=== PATIENT | female | born 2000 | race Caucasian/White ===

== ENCOUNTER 2022-09-23 11:03 | Emergency (ER) | payer MEDICAID, SELFPAY ==
[2022-09-23 11:12] VITALS: BP 123/82; PULSE 73; RESP 18; O2SAT 99; BMI 32.0
--- NOTE | 2022-09-23 11:27 | CRLHL7_ITS ---
For Patients: As a result of the Cures Act, medical imaging exams and procedure reports are released immediately into your electronic medical record. You may view this report before your referring provider. If you have questions, please contact your health care provider. INDICATION: Medial left wrist bump. TECHNIQUE: Three views of the left wrist. COMPARISON: None. FINDINGS: No soft tissue mass, fracture, erosive change, joint space narrowing or abnormal soft tissue calcification. CONCLUSION: Negative left wrist. Dictated by Daryl Pierre MD @ 09/23/2022 12:03:48 PM (Electronically Signed)
--- NOTE | 2022-09-23 11:31 | ED_ITS ---
HPI - Extremity Injury (Upper) General Date Seen: 09/23/22 Chief Complaint: Extremity Pain/Injury, Upper Stated Complaint: Lump on Lt wrist and going numb Time Seen by Provider: 09/23/22 11:04 Source: patient and family Mode of arrival: ambulatory Limitations: no limitations History of Present Illness HPI narrative: Patient is a 21-year-old female who is hesna-bods-bsxhbaiw, presents here with a bump on her left wrist, it is on the median side, she noticed it today, and notices little bit of tingling that comes up to her thumb 1st finger. She notices it most, when she dorsiflexes her wrist, she has noted no trauma, does not denies any injury. She is here with her mother because of this concern. Related Data Home Medications Medication Instructions Recorded Confirmed sertraline 100 mg tablet mg 09/23/22 Allergies Allergy/AdvReac Type Severity Reaction Status Date / Time amoxicillin Allergy Verified 09/23/22 11:11 Review of Systems Status of ROS: Reports: 6 or more systems reviewed and unremarkable except as noted in History and below PFSH PFSH Social History Smoking Status: Never smoker Do you use any of these nicotine containing products: None Second hand tobacco smoke exposure: No How often do you have a drink containing alcohol: never How often do you have six or more drinks on one occasion: Never AUDIT-C Alcohol total score: 0 Non-prescribed substance use: denies use service: No Exam Narrative: Exam Narrative: On examination she is in no apparent distress, there feel is a bit of a fluid- filled bump on the left wrist, overlying were extensor pollicis longus and slightly medial to this. It seemingly improves with the traction on her wrist, I suspected ganglion cyst. First finger thumb opposition, sensation is no globally normal over her entire hand. There is no thenar wasting noted. Cap refill is normal. And her wrist has full range of motion also. Const: Vital Signs, click to edit/add: Vital Signs - 24 hr 09/23/22 11:12 Pulse Rate [Pulse Oximeter] 73 Respiratory Rate 18 Blood Pressure [Ri ght Upper Arm] 123/82 Pulse Oximetry 99 Oxygen Delivery Me thod Room Air Course Course Hospital Course: I reviewed the x-ray, there is a little prominence over the scaphoid, and possibly little fluid but no firm fracture. Or other abnormality, I think a wrist splint, and follow-up with orthopedics is important, I did alleviate her anxiety over this. Vital Signs Vital signs: Initial Vital Signs Temperature Source Temporal Artery Scan 09/23/22 11:12 Pulse Rate 73 09/23/22 11:12 Pulse Rhythm 09/23/22 11:12 Respiratory Rate 18 09/23/22 11:12 Blood Pressure 123/82 09/23/22 11:12 Blood Pressure Mean 95 09/23/22 11:12 Blood Pressure Position Supine 09/23/22 11:12 Pulse Oximetry 99 09/23/22 11:12 Oxygen Delivery Method 09/23/22 11:12 Vital Signs Pulse Rate 73 09/23/22 11:12 Respiratory Rate 18 09/23/22 11:12 Blood Pressure 123/82 09/23/22 11:12 Pulse Oximetry 99 09/23/22 11:12 Oxygen Delivery Method 09/23/22 11:12 Pulse Rate 73 09/23/22 11:12 Respiratory Rate 18 09/23/22 11:12 Blood Pressure 123/82 09/23/22 11:12 Pulse Oximetry 99 09/23/22 11:12 Oxygen Delivery Method 09/23/22 11:12 MDM - Extremity Injury (Upper) MDM Narrative Medical decision making narrative: We will get a x-ray, rule out a bony abnormality, but I explained to her I think that this is a ganglion cyst a wrist splint and then follow up with Orthopedics would be suggested. Medical Records Attestation: I reviewed the patient's medical records. Lab Data Attestation: I reviewed the patient's lab results. Imaging Data wrist: Attestation: I have reviewed the pertinent imaging results. My impression: No evidence of fracture, slight prominence of the medial margin of navicular, and might be some overlying fluid. Possibly consistent with ganglion cyst or bursitis. Discharge Plan Discharge Clinical Impression: Ganglion of left wrist Patient Disposition: Home w/ Parent or Adult Condition: Stable Instructions: Ganglion Cysts (ED), Ganglion Cyst Removal (DC) Additional Instructions: Wear your splint, follow up with Orthopedics, he can do this as soon is next week, but there is really no reynolds. Sometimes they can do a cortisone shot also help this. Prescriptions: No Action sertraline 100 mg tablet Label Comments: TAKE ONE TABLET BY MOUTH ONE TIME DAILY Follow Up/Referrals: Panchito Santo DO [Primary Care Provider] - Luciano Sow MD [Staff Physician] - Minh Simeon MD [Staff Physician] - Stand Alone Forms: Your Image by [employer] Info Instructions
== END 2022-09-23 12:00 | disposition home or self-care (01) ==
PROVIDERS: Emergency Provider Family Medicine; PCP Pediatrics
DX: M67.432 Ganglion, left wrist (principal)
CPT/HCPCS: 29125; 73110; 99283

== ENCOUNTER 2024-12-03 00:44 | Emergency (ER) | payer MEDICAID, SELFPAY ==
--- NOTE | 2024-12-03 00:49 | CRLHL7_ITS ---
For Patients: As a result of the Cures Act, medical imaging exams and procedure reports are released immediately into your electronic medical record. You may view this report before your referring provider. If you have questions, please contact your health care provider. INDICATION: Stubbed on door frame TECHNIQUE: Toe radiograph 4 views right 5th COMPARISON: 11/01/2016 FINDINGS: Bone: No acute fractures or aggressive bone lesions are identified. The toe is completely obscured on the lateral view due to overlapping toe positioning. Joint: The metatarsophalangeal and interphalangeal joints are normal in appearance. Soft tissue: Unremarkable. No radiopaque foreign bodies are seen. IMPRESSION: 1. No acute osseous injuries or abnormalities are noted. Dictated by: Mukesh Landers MD @ 12/03/2024 01:13:11 (Electronically Signed)
[2024-12-03 00:50] VITALS: BP 133/70; PULSE 89; RESP 18; TEMP 36.7; O2SAT 99; BMI 35.4
--- NOTE | 2024-12-03 01:32 | ED_ITS ---
HPI - Extremity Injury (Lower) General Date Seen: 12/03/24 Chief Complaint: Extremity Pain/Injury, Lower Stated Complaint: Stubbed R pinky toe Time Seen by Provider: 12/03/24 00:47 History of Present Illness HPI Narrative: Patient is a 23-year-old female who get up to use the bathroom and stubbed her right 5th toe against a door frame. The pain was so intense that she thought she might pass out. She got back to bed and continue to throb so she got up and drove to the emergency department. She is not taking anything for pain she has not applied any ice. Related Data Home Medications ?Medication ?Instructions ?Recorded ?Confirmed No Known Home Medications 12/03/24 12/03/24 Allergies Allergy/AdvReac Type Severity Reaction Status Date / Time Penicillins Allergy Mild Hives Verified 12/03/24 00:52 amoxicillin Allergy Verified 12/03/24 00:52 Review of Systems Narrative: Review of systems is outlined above otherwise noted to be negative. 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 - Other obesity due to excess calories (ICD-10) Panic attacks ?F41.0 - Panic disorder [episodic paroxysmal anxiety] (ICD-10) Depression with anxiety ?F41.8 - Other specified anxiety disorders (ICD-10) Ganglion cyst of volar aspect of right wrist ?M67.431 - Ganglion, right wrist (ICD-10) Menorrhagia ?N92.0 - Excessive and frequent menstruation with regular cycle (ICD-10) Lactose intolerance ?E73.9 - Lactose intolerance, unspecified (ICD-10) Surgical History (Updated 12/03/24 @ 01:05 by Panda Moon RN) No significant past surgical history Family History (Updated 02/20/24 @ 12:11 by Chanda Howard PA-C) Father Diabetes Mother Diabetes Grandmother Diabetes Social History Narrative: Works for [employer], nonsmoker Smoking Status: Never smoker Do you use any of these nicotine containing products: None Second hand tobacco smoke exposure: No How often do you have a drink containing alcohol: never How often do you have six or more drinks on one occasion: Never AUDIT-C Alcohol total score: 0 Non-prescribed substance use: denies use service: No Exam Narrative: Exam Narrative: Vitals noted. There is no bruising or swelling of the right 5th toe. It is very tender to the touch. There is no obvious deformity. She is able ambulate. No breaks in the skin. Const: Vital Signs, click to edit/add: Vital Signs - 24 hr 12/03/24 00:50 12/03/24 01:44 12/03/24 01:45 Temperature 98.1 F 98.1 F 98.1 F Pulse Rate [Right Pulse Oximeter] 89 80 80 Respiratory Rate 18 18 18 Blood Pressure [Ri t Upper Arm] 133/70 128/68 128/68 Pulse Oximetry 99 99 Oxygen Delivery Me thod Room Air Room Air Course Course ED Course: Patient seen and examined. X-ray of the right 5th toe is negative for fracture. Vital Signs Vital signs: Initial Vital Signs Temperature 98.1 F 12/03/24 00:50 Temperature Source Temporal Artery Scan 12/03/24 00:50 Pulse Rate 89 12/03/24 00:50 Respiratory Rate 18 12/03/24 00:50 Blood Pressure 133/70 12/03/24 00:50 Blood Pressure Mean 91 12/03/24 00:50 Blood Pressure Position Sitting 12/03/24 00:50 Pulse Oximetry 99 12/03/24 00:50 Oxygen Delivery Method Room Air 12/03/24 00:50 Vital Signs Temperature 98.1 F 12/03/24 00:50 Pulse Rate 89 12/03/24 00:50 Respiratory Rate 18 12/03/24 00:50 Blood Pressure 133/70 12/03/24 00:50 Pulse Oximetry 99 12/03/24 00:50 Oxygen Delivery Method Room Air 12/03/24 00:50 Temperature 98.1 F 12/03/24 01:45 Pulse Rate 80 12/03/24 01:45 Respiratory Rate 18 12/03/24 01:45 Blood Pressure 128/68 12/03/24 01:45 Pulse Oximetry 99 12/03/24 01:44 Oxygen Delivery Method Room Air 12/03/24 01:44 Discharge Plan Discharge Clinical Impression: Contusion of toe Patient Disposition: Home, Self-Care Condition: Stable Additional Instructions: Your toe is bruised but not broken. Ice, elevate, sundar tape to the 4th toe. Ibuprofen 600 mg three times daily as needed. Prescriptions: No Action No Known Home Medications Follow Up/Referrals: Provider,Not a Local [Primary Care Provider] - Stand Alone Forms: [employer] Info Instructions
[2024-12-03 01:44] VITALS: BP 128/68; PULSE 80; RESP 18; TEMP 36.7; O2SAT 99
[2024-12-03 01:45] VITALS: BP 128/68; PULSE 80; RESP 18; TEMP 36.7
== END 2024-12-03 01:45 | disposition home or self-care (01) ==
PROVIDERS: Emergency Provider Family Medicine
DX: S90.121A Contusion of right lesser toe(s) without damage to nail, initial encounter (principal); W22.8XXA Striking against or struck by other objects, initial encounter
CPT/HCPCS: 73660; 99281; 99283